=== PATIENT | female | born 1950 | race Caucasian/White ===

== ENCOUNTER 2018-02-17 15:25 | Observation (INO) ==
--- NOTE | 2018-02-17 15:29 | Emergency Department Note ---
ED Disposition Clinical Impression: Chest pain, Atypical chest pain, COPD with acute exacerbation Disposition: Admitted As Inpatient Condition on Discharge: Fair Time of Disposition: 17:37 - Critical Care Critical Care Time: Yes Attestation: On , the high probability of a clinically significant, sudden or life threatening deterioration of the following system(s) required my full and direct attention, intervention and personal management. The time I documented below is in addition to time spent performing reported procedures but includes the following listed in this critical care notation. Total Critical Care Time: 45 Vital system(s) involved:: Circulatory Failure, Respiratory Failure My critical care processes included: Assessment & monitoring of V/S, Initial and Re-exams, Data Review/Interpretation, Coordinating Care, Medication Orders and management, Documentation Medical Decision Making - Medical Records Medical records reviewed: Yes: I reviewed the patient's medical records. - Ryan Inquiry Pt receiving controlled substance: No Ryan was queried for this patient: No Vital Signs: 02/17/18 15:26 02/17/18 15:50 02/17/18 16:24 Temperature 98.9 F Temperature Source Temporal Artery Scan Pulse Rate 112 H Pulse Rate [Right Brachial] 110 H 111 H Respiratory Rate 32 H 22 Blood Pressure Blood Pressure [Right Arm] 134/102 H 155/85 H Blood Pressure Mean [Right Arm] 112 108 Blood Pressure Source Blood Pressure Source [Right Arm] Automatic Cuff Automatic Cuff Blood Pressure Position Blood Pressure Position [Right Arm] Sitting Sitting 02 Sat by Pulse Oximetry 95 99 Oxygen Delivery Method Nasal Cannula Nasal Cannula Oxygen Flow Rate (LPM) 3 2 02/17/18 16:57 02/17/18 17:00 02/17/18 17:30 Temperature Temperature Source Pulse Rate Pulse Rate [Right Brachial] 107 H 104 H 103 H Respiratory Rate 22 20 Blood Pressure Blood Pressure [Right Arm] 166/96 H 172/89 H 168/93 H Blood Pressure Mean [Right Arm] 119 116 118 Blood Pressure Source Blood Pressure Source [Right Arm] Automatic Cuff Automatic Cuff Blood Pressure Position Blood Pressure Position [Right Arm] Sitting Sitting 02 Sat by Pulse Oximetry 100 100 99 Oxygen Delivery Method Nasal Cannula Nasal Cannula Oxygen Flow Rate (LPM) 2 2 02/17/18 18:00 02/17/18 18:30 02/17/18 18:40 Temperature 98.8 F Temperature Source Oral Pulse Rate 99 H Pulse Rate [Right Brachial] 109 H 99 H Respiratory Rate 24 20 20 Blood Pressure 173/85 H Blood Pressure [Right Arm] 181/102 H 173/85 H Blood Pressure Mean [Right Arm] 128 114 Blood Pressure Source Automatic Cuff Blood Pressure Source [Right Arm] Automatic Cuff Automatic Cuff Blood Pressure Position Sitting Blood Pressure Position [Right Arm] Sitting Sitting 02 Sat by Pulse Oximetry 97 98 Oxygen Delivery Method Nasal Cannula Nasal Cannula Nasal Cannula Oxygen Flow Rate (LPM) 2 2 2 - Lab Data Lab results reviewed: Yes: I reviewed the patient's lab results. Lab Results 02/17/18 15:30: WBC 13.4 H, RBC 3.73 L, Hgb 12.1 L, Hct 36.5 L, MCV 97.8, MCH 32.3 H, MCHC 33.0, RDW 13.8, Plt Count 312, MPV 6.7 L, Neut % (Auto) 87.0 H, Lymph % (Auto) 6.7 L, Armstrong % (Auto) 4.5, Eos % (Auto) 1.6, Baso % (Auto) 0.3, Neut # (Auto) 11.6 H, Lymph # (Auto) 0.9, Armstrong # (Auto) 0.6, Eos # (Auto) 0.2, Baso # (Auto) 0.0, Total Counted 100, Neutrophils % (Manual) 89 H, Band Neutrophils % 1.0, Lymphocytes % (Manual) 6 L, Atypical Lymphs % 1.0, Monocytes % (Manual) 3, Platelet Estimate Normal, RBC Morphology Normal 02/17/18 15:30: Sodium 130 L, Potassium 3.9, Chloride 94 L, Carbon Dioxide 25, Anion Gap 14.9, BUN 8, Creatinine 0.57, Estimated Creat Clear 48, Estimated GFR 106, Est GFR ( Amer) 128, Glucose 120 H, Calcium 8.8, Troponin I < 0.02 02/17/18 15:30: Lactate 3.0 H 02/17/18 15:32: Specimen Source Rt radial, O2 % 28, ABG pH 7.41, ABG pCO2 30.5 L , ABG pO2 107.7 H, ABG HCO3 19.0 L, ABG Total CO2 20.0 L, ABG O2 Saturation 98, ABG Base Excess -5.6 L, Romero Test Acceptable Result diagrams: 02/24/18 05:18 02/24/18 05:18 Orders (Tests/Meds): ED MEDICATIONS Generic Name Dose Route Start Last Admin Trade Name Freq PRN Reason Stop Dose Admin Acetaminophen 1,000 mg 02/24/18 09:34 Tylenol 500mg Tablet PO 03/20/18 17:06 Q6HP PRN Mild pain,fever,headache Albuterol/Ipratropium 3 ml 02/24/18 09:34 Duoneb 3ml Neb 03/20/18 22:59 Q4HP PRN Shortness Of Breath Albuterol/Ipratropium 3 ml 02/24/18 13:00 02/24/18 09:49 Duoneb 3ml Neb 03/20/18 12:59 3 ml QID NONA Administration Aspirin 81 mg 02/24/18 13:00 02/24/18 12:31 Aspirin 81mg Chewable Tablet PO 03/21/18 14:14 81 mg 1300 NONA Administration Atorvastatin Calcium 20 mg 02/24/18 13:00 02/24/18 12:31 Lipitor 20mg Tablet PO 03/23/18 12:59 20 mg 1300 NONA Administration Diltiazem HCl 120 mg 02/24/18 21:00 Cardizem 60mg Tablet PO 03/26/18 08:59 BID NONA Hydroxyzine Pamoate 25 mg 02/24/18 09:34 Vistaril 25mg Capsule PO 03/20/18 23:00 Q4HP PRN Anxiety Azithromycin 500 mg/ Sodium 250 mls @ 250 mls/hr 02/24/18 21:00 Chloride IV 03/03/18 20:59 Q24H NONA Protocol Ceftriaxone Sodium 1 gm/ 50 mls @ 100 mls/hr 02/24/18 18:00 Sodium Chloride IV 03/03/18 17:59 Q24H NONA Protocol Lisinopril 10 mg 02/24/18 13:00 02/24/18 12:31 Zestril 10mg Tablet PO 03/21/18 08:59 10 mg 1300 NONA Administration Montelukast Sodium 10 mg 02/24/18 13:00 02/24/18 12:31 Singulair 10mg Tablet PO 03/23/18 12:59 10 mg 1300 NONA Administration Potassium Chloride 10 meq 02/25/18 09:00 Micro-K 10meq Capsule PO 03/24/18 09:14 DAILY NONA Prednisone 30 mg 02/24/18 21:00 Deltasone 20mg Tablet PO 03/25/18 08:59 BID NONA Rivaroxaban 20 mg 02/24/18 17:30 Xarelto 10mg Tablet PO 03/26/18 17:29 QPMWM NONA Simethicone 80 mg 02/24/18 09:34 Mylicon 80mg Chewable Tablet PO 03/20/18 19:13 Q6HP PRN GAS Discontinued Medications Generic Name Dose Route Start Last Admin Trade Name Freq PRN Reason Stop Dose Admin Acetaminophen 1,000 mg 02/18/18 17:07 02/23/18 02:59 Tylenol 500mg Tablet PO 03/20/18 17:06 1,000 mg Q6HP PRN Administration Mild pain,fever,headache Al Hydrox/Mg Hydrox/Simethicone 30 ml 02/17/18 19:20 02/17/18 20:44 Maalox 30ml Udc PO 02/17/18 19:21 30 ml ONCE ONE Administration Albuterol Sulfate 2.5 mg 02/17/18 19:20 02/18/18 08:06 Albuterol 0.083% 2.5mg/3ml [facility] 03/19/18 19:19 2.5 mg DAILYP PRN Administration BREATHING Albuterol/Ipratropium 3 ml 02/17/18 15:33 02/17/18 15:50 Duoneb 3ml [facility] 02/17/18 15:34 3 ml ONCE ONE Administration Albuterol/Ipratropium 3 ml 02/18/18 08:15 02/18/18 08:22 Duoneb 3ml Neb 02/18/18 08:16 Not Given ONCE ONE Albuterol/Ipratropium 3 ml 02/18/18 13:00 02/24/18 06:00 Duoneb 3ml [facility] 03/20/18 12:59 3 ml QID NONA Administration Albuterol/Ipratropium 3 ml 02/18/18 23:00 02/22/18 01:30 Duoneb 3ml [facility] 03/20/18 22:59 3 ml Q4HP PRN Administration Shortness Of Breath Aspirin 324 mg 02/17/18 19:20 02/17/18 20:36 Aspirin 81mg Chewable Tablet PO 02/17/18 19:21 Not Given ONCE ONE Aspirin 81 mg 02/19/18 14:15 02/23/18 13:46 Aspirin 81mg Chewable Tablet PO 03/21/18 14:14 81 mg 1300 NONA Administration Atorvastatin Calcium 20 mg 02/18/18 13:00 02/20/18 12:21 Lipitor 20mg Tablet PO 03/20/18 12:59 20 mg 1300 NONA Administration Atorvastatin Calcium 20 mg 02/21/18 13:00 02/23/18 13:46 Lipitor 20mg Tablet PO 03/23/18 12:59 20 mg 1300 NONA Administration Belladonna Alkaloids 60 ml 02/17/18 15:33 02/17/18 15:36 Gi Cocktail 60ml Udc PO 02/17/18 15:34 60 ml ONCE ONE Administration Clonidine HCl 0.1 mg 02/22/18 09:01 02/22/18 20:24 Clonidine 0.1mg Tablet PO 03/24/18 09:00 0.1 mg Q6HP PRN Administration Blood Pressure - High Diltiazem HCl 30 mg 02/23/18 09:00 02/23/18 09:42 Cardizem 30mg Tablet PO 03/25/18 08:59 30 mg QID NONA Administration Diltiazem HCl 10 mg 02/23/18 11:15 02/23/18 11:28 Cardizem 25mg/5ml Vial IV 02/23/18 11:16 10 mg ONCE ONE Administration Diltiazem HCl 120 mg 02/23/18 21:00 Cardizem 60mg Tablet PO 03/25/18 20:59 BID NONA Diltiazem HCl 120 mg 02/24/18 09:00 02/24/18 08:22 Cardizem 60mg Tablet PO 03/26/18 08:59 120 mg BID NONA Administration Diltiazem HCl 120 mg 02/23/18 17:00 02/23/18 17:02 Cardizem 30mg Tablet PO 02/23/18 17:01 120 mg 1700 ONE Administration Enoxaparin Sodium 40 mg 02/18/18 17:15 02/22/18 08:00 Lovenox 40mg/0.4ml Syringe SQ 03/20/18 17:14 40 mg DAILY NONA Administration Enoxaparin Sodium 50 mg 02/23/18 09:00 02/24/18 08:23 Lovenox 60mg/0.6ml Syringe SQ 03/25/18 08:59 50 mg BID NONA Administration Furosemide 40 mg 02/21/18 13:40 02/21/18 13:51 Lasix 40mg/4ml Vial IV 02/21/18 13:41 40 mg ONCE ONE Administration Hydroxyzine Pamoate 25 mg 02/18/18 23:01 02/24/18 08:46 Vistaril 25mg Capsule PO 03/20/18 23:00 25 mg Q4HP PRN Administration Anxiety Hydroxyzine Pamoate 25 mg 02/19/18 15:45 02/19/18 15:35 Vistaril 25mg Capsule PO 02/19/18 15:46 25 mg ONCE ONE Administration Ceftriaxone Sodium 1 gm/ 50 mls @ 100 mls/hr 02/17/18 18:30 02/17/18 20:33 Sodium Chloride IV 02/17/18 18:59 100 mls/hr ONCE ONE Administration Protocol Azithromycin 500 mg/ Sodium 250 mls @ 250 mls/hr 02/17/18 18:30 02/17/18 21:20 Chloride IV 03/03/18 18:29 250 mls/hr Q24H NONA Administration Protocol Sodium Chloride 1,000 mls @ 125 mls/hr 02/17/18 18:45 02/17/18 20:45 Sod Chlor 0.9% 1000ml Bag IV 03/19/18 18:44 Not Given .Q8H NONA Azithromycin 500 mg/ Sodium 250 mls @ 250 mls/hr 02/18/18 21:00 02/23/18 21:10 Chloride IV 03/03/18 20:59 250 mls/hr Q24H NONA Administration Protocol Ceftriaxone Sodium 1 gm/ 50 mls @ 100 mls/hr 02/18/18 18:00 02/23/18 18:02 Sodium Chloride IV 03/03/18 17:59 100 mls/hr Q24H NONA Administration Protocol Sodium Chloride 1,000 mls @ 75 mls/hr 02/17/18 19:20 02/20/18 03:02 Sod Chlor 0.9% 1000ml Bag IV 03/19/18 19:19 75 mls/hr .[id number] NONA Administration Sodium Chloride 1,000 mls @ 125 mls/hr 02/17/18 19:20 02/17/18 20:39 Sod Chlor 0.9% 1000ml Bag IV 03/19/18 18:44 Not Given .Q8H NONA Diltiazem HCl 100 mg/ Sodium 100 mls @ 5 mls/hr 02/23/18 14:45 02/23/18 15:04 Chloride IV 02/23/18 17:00 5 mls/hr .Q20H NONA Administration Protocol Levalbuterol HCl 1.25 mg 02/19/18 15:15 02/19/18 15:15 Xopenex 1.25mg/3ml Neb IH 02/19/18 15:16 1.25 mg ONCE ONE Administration Lisinopril 10 mg 02/18/18 13:00 02/18/18 13:29 Zestril 10mg Tablet PO 03/20/18 12:59 10 mg 1300 NONA Administration Lisinopril 10 mg 02/19/18 09:00 02/23/18 13:46 Zestril 10mg Tablet PO 03/21/18 08:59 10 mg 1300 NONA Administration Methylprednisolone Sodium Succinate 125 mg 02/17/18 16:18 02/17/18 16:26 Solu-Medrol 125mg/2ml Vial IV 02/17/18 16:19 125 mg ONCE ONE Administration Methylprednisolone Sodium Succinate 125 mg 02/18/18 08:15 02/18/18 08:16 Solu-Medrol 125mg/2ml Vial IV 02/18/18 08:16 125 mg ONCE ONE Administration Methylprednisolone Sodium Succinate 125 mg 02/18/18 07:55 02/18/18 09:10 Solu-Medrol 125mg/2ml Vial IV 02/18/18 07:56 Not Given ONCE ONE Methylprednisolone Sodium Succinate 125 mg 02/18/18 17:15 02/21/18 08:28 Solu-Medrol 125mg/2ml Vial IV 03/20/18 17:14 125 mg Q8H NONA Administration Methylprednisolone Sodium Succinate 80 mg 02/21/18 13:40 02/22/18 05:22 Solu-Medrol 125mg/2ml Vial IV 03/23/18 13:39 80 mg Q8H NONA Administration Methylprednisolone Sodium Succinate 60 mg 02/22/18 13:00 02/23/18 04:09 Solu-Medrol 125mg/2ml Vial IV 03/24/18 12:59 60 mg Q8H NONA Administration Montelukast Sodium 10 mg 02/18/18 13:00 02/20/18 12:21 Singulair 10mg Tablet PO 03/20/18 12:59 10 mg 1300 NONA Administration Montelukast Sodium 10 mg 02/21/18 13:00 02/23/18 13:46 Singulair 10mg Tablet PO 03/23/18 12:59 10 mg 1300 NONA Administration Nitroglycerin 0.4 mg 02/17/18 19:20 Nitrostat 0.4mg Sl Tablet SL 02/18/18 19:21 Q5MINP PRN Chest Pain Pt's Own Med 1 tab 02/18/18 13:00 02/19/18 15:21 Aspirin 81mg PO 03/20/18 12:59 Not Given Chewable Tab* 1300 NONA Potassium Chloride 10 meq 02/22/18 09:15 02/24/18 08:23 Micro-K 10meq Capsule PO 03/24/18 09:14 10 meq DAILY NONA Administration Prednisone 30 mg 02/23/18 09:00 02/24/18 08:24 Deltasone 20mg Tablet PO 03/25/18 08:59 30 mg BID NONA Administration Rivaroxaban 20 mg 02/24/18 17:30 Xarelto 10mg Tablet PO 03/26/18 17:29 QPMWM NONA Simethicone 80 mg 02/18/18 19:14 02/24/18 08:46 Mylicon 80mg Chewable Tablet PO 03/20/18 19:13 80 mg Q6HP PRN Administration GAS ORDERS Category Date Time Status Blood Culture Stat Micro 02/17/18 15:30 Ordered ECG Request by /Yobani Stat Y 02/17/18 19:20 Stop Req - Radiology Data #1 Image(s): Chest Image Reviewed: Yes I reviewed the patient's radiology results Preliminary Findings: Normal/NAD - ECG Data Tracing #1 I reviewed this ECG and interpreted as documented below: Sinus tachycardia;LAE Normal Sinus Rhythm: Yes Chest Pain HPI - General Chief Complaint: Chest Pain Stated Complaint: Shortness of Breath Time Seen by Provider: 02/17/18 15:27 Source of Information: Patient Limitations: No Limitations - History of Present Illness MD complaint: chest pain Onset (ago): hour(s) (4) Duration: constant Activity at onset: during rest Pain location: substernal Severity: mild Severity scale (1-10): 4 Quality: sharp, other (burning) Pain radiation: none Relieving factors: nitroglycerin Exacerbating factors: nothing Associated symptoms: dyspnea Risk Factors for CAD: Hypertension, Hypercholesterolemia Treatments prior to or on arrival for Cardiac Chest Pain: aspirin, nitroglycerin, other (duoneb) - Related Data Home Medications Medication Instructions Recorded Confirmed Albuterol Sulfate [Proair 2 puffs IH Q4-6H PRN 02/17/18 02/18/18 Respiclick] Aspirin [Aspirin 81mg chewable 81 mg PO 1400 02/17/18 02/18/18 tab] Atorvastatin Calcium [Atorvastatin 20 mg PO 1400 02/17/18 02/18/18 20mg Tab] Montelukast Sodium [Singulair 10mg 10 mg PO HS 02/17/18 02/18/18 tablet] Ipratropium/Albuterol Sulfate 3 ml INHALATION QID 02/18/18 02/18/18 [Iprat-Albut 0.5-3(2.5) mg/3 ml] Lisinopril/Hydrochlorothiazide 1 each PO 1400 02/18/18 02/18/18 [Lisinopril-Hctz 10-12.5 mg Tab] Allergies Allergy/AdvReac Type Severity Reaction Status Date / Time No Known Allergies Allergy Verified 02/17/18 15:29 [facility] History I have reviewed the patient's past medical history: Yes ROS Obtained: Yes All systems reviewed & no additional complaints - Constitutional Constitutional: Reports system reviewed and no additional complaints, except as docu, Denies chills, Denies fever(s), Reports malaise - Cardiovascular Cardiovascular: Reports system reviewed and no additional complaints, except as docu, Reports chest pain, Denies diaphoresis, Reports dyspnea, Denies edema, Reports irregular heart rhythm, Denies leg edema, Reports shortness of breath when lying down, Denies shortness of breath causing sudden awakening, Denies pedal edema - Respiratory Respiratory: Yes system reviewed and no additional complaints, except as docu, No cough, Yes dyspnea - Gastrointestinal Gastrointestingal: Reports: system reviewed and no additional complaints, except as docu, abdominal pain (epigastrium). Denies: diarrhea, dyspepsia, dysphagia, nausea, vomiting - Integumentary/Breasts Skin/Breast: Reports system reviewed and no additional complaints, except as docu - Neurologic Neurologic: Reports system reviewed and no additional complaints, except as docu, Denies dizziness, Denies headache(s) - Endocrine Endocrine: Reports system reviewed and no additional complaints, except as docu Physical Exam - General General appearance: alert, in distress (moderate,respiratorm) - Head Head exam: atraumatic, normocephalic, normal inspection - Eye Eye exam: Present: normal appearance, PERRL, EOMI - ENT ENT exam: Present: normal exam, normal oropharynx, mucous membranes moist, normal external ear exam - Neck Neck exam: Present: normal inspection, full ROM, trachea midline. Absent: meningismus, lymphadenopathy - Chest Chest inspection: Present: normal inspection, symmetric chest wall rise. Absent: tenderness - Respiratory Respiratory exam: Present: normal lung sounds bilaterally. Absent: respiratory distress - Cardiovascular Cardiovascular exam: Present: normal rhythm, tachycardia. Absent: JVD - Abdominal Exam Abdominal exam: Present: soft, normal bowel sounds. Absent: distention, tenderness, guarding - Extremities Exam Extremities exam: Present: normal inspection, full ROM, normal capillary refill. Absent: calf tenderness - Back Exam Back exam: Present: normal inspection. Absent: tenderness - Neurological Exam Neurological exam: Present: alert, oriented X3 - Psychiatric Psychiatric exam: Present: normal affect, normal mood - Skin Skin exam: Present: warm, dry, intact, normal color - Lymphatic Lymphatic Findings: no adenopathy
[2018-02-17 15:38] LABS: ABG Base Excess -5.6 mmol/L (-2.4-2.3); ABG Oxygen Saturation 98 % (90-100); ABG PCO2 30.5 mmhg (35.0-45.0); ABG PH 7.41 mmol/L (7.35-7.45); ABG PO2 107.7 mmhg (80-100)
[2018-02-17 15:40] LABS: Basophils % 0.3 % (0.1-2.0); Eosinophils # 0.2 K/mm3 (0.0-0.4); Eosinophils % 1.6 % (0.1-12.0); Hematocrit 36.5 % (37.0-47.0); Hemoglobin 12.1 g/dL (12.2-16.2); Lymphocytes # 0.9 K/mm3 (0.7-4.5); Lymphocytes % 6.7 % (10-50); Mean Corpuscular Hemoglobin 32.3 pg (27.0-31.2); Mean Corpuscular Volume 97.8 fl (81-99); Mean Platelet Volume 6.7 fl (7.4-10.4); Monocytes # 0.6 K/mm3 (0.1-1.0); Monocytes % 4.5 % (1.7-9.3); Neutrophils # 11.6 K/mm3 (1.8-7.8); Platelet Count 312 K/mm3 (142-424); Red Blood Count 3.73 M/mm3 (4.20-5.40); Red Cell Distribution Width 13.8 % (11.5-17.5); White Blood Count 13.4 K/mm3 (4.8-10.8)
[2018-02-17 15:41] LABS: Allen's Test Acceptable; Oxygen 28 %
[2018-02-17 15:55] LABS: Lymphocytes % 6 % (10-50); Monocytes % 3 % (2-9); Neutrophils % 89 % (42-76); RBC Morphology Normal; Total Cells Counted 100
[2018-02-17 16:07] LABS: Anion Gap 14.9 mEq/L (5-15); Blood Urea Nitrogen 8 mg/dL (7-18); Calcium 8.8 mg/dL (8.5-10.1); Carbon Dioxide 25 mmol/L (21.0-32.0); Chloride 94 mmol/L (98-107); Glucose 120 mg/dL (74-106); Potassium 3.9 mmoL/L (3.5-5.1); Sodium 130 mmol/L (136-145)
[2018-02-17 20:02] LABS: Basophils % 0.1 % (0.1-2.0); Eosinophils # 0.1 K/mm3 (0.0-0.4); Eosinophils % 0.4 % (0.1-12.0); Hematocrit 35.7 % (37.0-47.0); Hemoglobin 11.7 g/dL (12.2-16.2); Lymphocytes # 0.2 K/mm3 (0.7-4.5); Lymphocytes % 1.5 % (10-50); Mean Corpuscular HGB Conc 32.8 g/dL (31.8-35.4); Mean Corpuscular Hemoglobin 31.8 pg (27.0-31.2); Mean Corpuscular Volume 96.7 fl (81-99); Mean Platelet Volume 6.9 fl (7.4-10.4); Monocytes # 0.2 K/mm3 (0.1-1.0); Monocytes % 1.5 % (1.7-9.3); Neutrophils # 13.2 K/mm3 (1.8-7.8); Neutrophils % 96.6 % (37.0-80.0); Platelet Count 262 K/mm3 (142-424); Red Blood Count 3.69 M/mm3 (4.20-5.40); Red Cell Distribution Width 13.7 % (11.5-17.5); White Blood Count 13.7 K/mm3 (4.8-10.8)
[2018-02-17 20:30] LABS: Albumin Level 3.6 gm/dL (3.4-5.0); Anion Gap 15.5 mEq/L (5-15); Bilirubin,Total 0.6 mg/dL (0.2-1.0); Calcium 8.7 mg/dL (8.5-10.1); Globulin 3.6 gm/dl (1.3-3.2); Potassium 4.5 mmoL/L (3.5-5.1); Total Protein,Serum 7.2 gm/dL (6.4-8.2)
--- NOTE | 2018-02-18 07:38 | Pharmacy Consult Notes ---
[facility] VTE Monitoring - Patient Demographics Admission date: 02/17/18 Report Date: 02/18/18 Time: 07:38 Allergies/Adverse Reactions: Patient Allergies No Known Allergies Allergy (Verified 02/17/18 15:29) Height: 1.55 m Weight: 47.826 kg Patient Problems: Current Active Problems Chest pain (Acute) Atypical chest pain (Acute) COPD with acute exacerbation (Acute) - VTE Risk Labs: VTE Related Lab Results Hgb 11.7 g/dL (12.2-16.2) L 02/17/18 19:50 Hct 35.7 % (37.0-47.0) L 02/17/18 19:50 Plt Count 262 K/mm3 (142-424) 02/17/18 19:50 BUN 8 mg/dL (7-18) 02/17/18 19:50 Creatinine 0.60 mg/dL (0.55-1.02) 02/17/18 19:50 Estimated Creat Clear 48 mL/min (50-200) 02/17/18 19:50 Was VTE Risk Assessment Performed: Yes VTE Risk Level: Very Low Risk - Prophylaxis VTE Prophylaxis Ordered?: Yes Types of VTE Prophylaxis: TEDS Knee High Location of Applied Device: Bilateral Lower Extremeties - VTE Diagnosis Confirmed Treatment or plan recommended: Continue Current Treatment
--- NOTE | 2018-02-18 09:24 | History & Physical Report ---
*Admission Date: 02/17/18 <YanesFelisaLucy - 02/18/18 09:33> *Chief complaint: Shortness of breath <YanesFelisaLucy 02/18/18 09:33> *History of present illness: Ms. Quintero is a 67-year-old female with a history of COPD tension who began to get short of breath yesterday a.m. when entailed running errands. She states she went home a DuoNeb treatment and did not improve and thus called 911. Ambulance brought her to [facility] emergency room for evaluation. She denies having any cough although she has somewhat of a cough this morning. She describes some midsternal burning. She denies palpitations or leg edema. She denies having a fever or any other upper respiratory signs or symptoms. She is usually short of breath in the a.m., takes a DuoNeb treatment, and then feels fine. She does not use home oxygen. Patient is physician is Dr. Wesley in [facility]. At the time of this exam patient is short of breath after walking to the bathroom and has not recovered. She will receive a stat and given a stat dose of Solu-Medrol. She has not received a DuoNeb since last p.m. In the emergency room she received DuoNeb treatment, IV Solu-Medrol and started on IV antibiotics and admitted. <Lucy Yanes 02/18/18 09:33> [facility] History Medical History: Reports:: Chronic Obstructive Pulmonary Disease (COPD), Gastroesophageal Reflux Disease(GERD), Hypertension, Lung Disease Denies:: Atherosclerotic Heart Disease, Cancer, Cardiomyopathy, Congestive Heart Failure, Coronary Artery Disease, Depression, Diabetes Mellitus Type 2, Home Oxygen, Renal Insufficiency, Seizures <Lucy Yanes 02/18/18 09:33> Other Medical History: Denies: Arthritis, Hypothyroidism <Lucy Yanes 02/18/18 09:33> Laterality Cases: Bilateral: Cataract <Lucy Yanes 02/18/18 09:33> Comment: Hysterectomy <Lucy Yanes 02/18/18 09:33> - Psychiatric History Expresses thoughts of harming self/others: None <Lucy Yanes 02/18/18 09:33> Suicide Plan Description: No Plan <Lucy Yanes 02/18/18 09:33> *Family Hx:: Cancer <Lucy Yanes 02/18/18 09:33> Comment: 3 siblings have had lung cancer <Lucy Yanes 02/18/18 09:33> Review of Systems - Constitutional Denies chills, Denies fever(s), Denies headache(s) <Lucy Yanes 02/18/18 09:33> - ENT Denies dizziness, Denies ear pain, Denies sore throat <Lucy Yanes 02/18/18 09:33> - *Cardiovascular Reports chest pain (Midsternal burning) <Lucy Yanes 02/18/18 09:33> - *Respiratory Reports cough, Reports shortness of breath <Lucy Yanes 02/18/18 09:33> - *Gastrointestinal Reports constipation, Reports heartburn, Denies abdominal pain, Denies change in bowel habits, Denies vomiting blood, Denies black, tarry stools, Denies nausea, Denies vomiting <Lucy Yanes 02/18/18 09:33> - *Musculoskeletal Denies abnormal walking, Denies joint pain <Lucy Yanes 02/18/18 09:33> - *Neurologic Denies dizziness, Denies headache(s) <Lucy Yanes 02/18/18 09:33> Meds Home Medications Medication Instructions Recorded Confirmed Type Albuterol Sulfate [Proair 2 puffs IH Q4-6H PRN 02/17/18 02/18/18 History Respiclick] Aspirin [Aspirin 81mg chewable 81 mg PO 1400 02/17/18 02/18/18 History tab] Atorvastatin Calcium [Atorvastatin 20 mg PO 1400 02/17/18 02/18/18 History 20mg Tab] Montelukast Sodium [Singulair 10mg 10 mg PO HS 02/17/18 02/18/18 History tablet] Ipratropium/Albuterol Sulfate 3 ml INHALATION QID 02/18/18 02/18/18 History [Iprat-Albut 0.5-3(2.5) mg/3 ml] Lisinopril/Hydrochlorothiazide 1 each PO 1400 02/18/18 02/18/18 History [Lisinopril-Hctz 10-12.5 mg Tab] <Ryland Henley - 02/18/18 12:46> Allergies Allergy/AdvReac Type Severity Reaction Status Date / Time No Known Allergies Allergy Verified 02/17/18 15:29 <Ryland Henley - 02/18/18 12:46> Exam Vital signs and Labs for Last 24 Hours: Temp Pulse Resp BP Pulse Ox 98.7 F 92 H 19 137/65 93 L 02/18/18 11:25 02/18/18 11:25 02/18/18 11:25 02/18/18 11:25 02/18/18 11:25 Laboratory Results - last 24 hr 02/17/18 15:30: WBC 13.4 H, RBC 3.73 L, Hgb 12.1 L, Hct 36.5 L, MCV 97.8, MCH 32.3 H, MCHC 33.0, RDW 13.8, Plt Count 312, MPV 6.7 L, Neut % (Auto) 87.0 H, Lymph % (Auto) 6.7 L, [place] % (Auto) 4.5, Eos % (Auto) 1.6, Baso % (Auto) 0.3, Neut # (Auto) 11.6 H, Lymph # (Auto) 0.9, [place] # (Auto) 0.6, Eos # (Auto) 0.2, Baso # (Auto) 0.0, Total Counted 100, Neutrophils % (Manual) 89 H, Band Neutrophils % 1.0, Lymphocytes % (Manual) 6 L, Atypical Lymphs % 1.0, Monocytes % (Manual) 3, Platelet Estimate Normal, RBC Morphology Normal 02/17/18 15:30: Sodium 130 L, Potassium 3.9, Chloride 94 L, Carbon Dioxide 25, Anion Gap 14.9, BUN 8, Creatinine 0.57, Estimated Creat Clear 48, Estimated GFR 106, Est GFR ( Amer) 128, Glucose 120 H, Calcium 8.8, Troponin I < 0.02 02/17/18 15:30: Lactate 3.0 H 02/17/18 15:32: Specimen Source Rt radial, O2 % 28, ABG pH 7.41, ABG pCO2 30.5 L , ABG pO2 107.7 H, ABG HCO3 19.0 L, ABG Total CO2 20.0 L, ABG O2 Saturation 98, ABG Base Excess -5.6 L, Romero Test Acceptable 02/17/18 19:50: Troponin I 0.02 02/17/18 19:50: Sodium 129 L, Potassium 4.5, Chloride 93 L, Carbon Dioxide 25, Anion Gap 15.5 H, BUN 8, Creatinine 0.60, Estimated Creat Clear 48, Estimated GFR 100, Est GFR ( Amer) 121, Glucose 150 H D, Calcium 8.7, Total Bilirubin 0.6, AST 19, ALT 24, Alkaline Phosphatase 72, CK-MB (CK-2) 3.1, Total Protein 7.2, Albumin 3.6, Globulin 3.6 H, Albumin/Globulin Ratio 1.0 L 02/17/18 19:50: WBC 13.7 H, RBC 3.69 L, Hgb 11.7 L, Hct 35.7 L, MCV 96.7, MCH 31.8 H, MCHC 32.8, RDW 13.7, Plt Count 262, MPV 6.9 L, Neut % (Auto) 96.6 H, Lymph % (Auto) 1.5 L, [place] % (Auto) 1.5 L, Eos % (Auto) 0.4, Baso % (Auto) 0.1, Neut # (Auto) 13.2 H, Lymph # (Auto) 0.2 L, [place] # (Auto) 0.2, Eos # (Auto) 0.1, Baso # (Auto) 0.0 02/17/18 19:50: Lactate 1.2 02/17/18 22:23: Troponin I 0.02 02/18/18 01:20: Troponin I < 0.02 <Ryland Henley - 02/18/18 12:46> Temp Pulse Resp BP Pulse Ox 98.8 F 88 21 137/78 98 02/18/18 07:18 02/18/18 08:07 02/18/18 07:18 02/18/18 07:18 02/18/18 08:07 Laboratory Results - last 24 hr 02/17/18 15:30: WBC 13.4 H, RBC 3.73 L, Hgb 12.1 L, Hct 36.5 L, MCV 97.8, MCH 32.3 H, MCHC 33.0, RDW 13.8, Plt Count 312, MPV 6.7 L, Neut % (Auto) 87.0 H, Lymph % (Auto) 6.7 L, [place] % (Auto) 4.5, Eos % (Auto) 1.6, Baso % (Auto) 0.3, Neut # (Auto) 11.6 H, Lymph # (Auto) 0.9, [place] # (Auto) 0.6, Eos # (Auto) 0.2, Baso # (Auto) 0.0, Total Counted 100, Neutrophils % (Manual) 89 H, Band Neutrophils % 1.0, Lymphocytes % (Manual) 6 L, Atypical Lymphs % 1.0, Monocytes % (Manual) 3, Platelet Estimate Normal, RBC Morphology Normal 02/17/18 15:30: Sodium 130 L, Potassium 3.9, Chloride 94 L, Carbon Dioxide 25, Anion Gap 14.9, BUN 8, Creatinine 0.57, Estimated Creat Clear 48, Estimated GFR 106, Est GFR ( Amer) 128, Glucose 120 H, Calcium 8.8, Troponin I < 0.02 02/17/18 15:30: Lactate 3.0 H 02/17/18 15:32: Specimen Source Rt radial, O2 % 28, ABG pH 7.41, ABG pCO2 30.5 L , ABG pO2 107.7 H, ABG HCO3 19.0 L, ABG Total CO2 20.0 L, ABG O2 Saturation 98, ABG Base Excess -5.6 L, Romero Test Acceptable 02/17/18 19:50: Troponin I 0.02 02/17/18 19:50: Sodium 129 L, Potassium 4.5, Chloride 93 L, Carbon Dioxide 25, Anion Gap 15.5 H, BUN 8, Creatinine 0.60, Estimated Creat Clear 48, Estimated GFR 100, Est GFR ( Amer) 121, Glucose 150 H D, Calcium 8.7, Total Bilirubin 0.6, AST 19, ALT 24, Alkaline Phosphatase 72, CK-MB (CK-2) 3.1, Total Protein 7.2, Albumin 3.6, Globulin 3.6 H, Albumin/Globulin Ratio 1.0 L 02/17/18 19:50: WBC 13.7 H, RBC 3.69 L, Hgb 11.7 L, Hct 35.7 L, MCV 96.7, MCH 31.8 H, MCHC 32.8, RDW 13.7, Plt Count 262, MPV 6.9 L, Neut % (Auto) 96.6 H, Lymph % (Auto) 1.5 L, [place] % (Auto) 1.5 L, Eos % (Auto) 0.4, Baso % (Auto) 0.1, Neut # (Auto) 13.2 H, Lymph # (Auto) 0.2 L, [place] # (Auto) 0.2, Eos # (Auto) 0.1, Baso # (Auto) 0.0 02/17/18 19:50: Lactate 1.2 02/17/18 22:23: Troponin I 0.02 02/18/18 01:20: Troponin I < 0.02 <Lucy Yanes - 02/18/18 09:33> I & O for Last 24 hours: Intake & Output 02/16/18 02/17/18 02/18/18 02/19/18 11:59 11:59 11:59 11:59 Intake Total 1542 / 1542 Balance 1542 / 1542 Weight 105 lb 7 oz <[place],Ryland - 02/18/18 12:46> Intake & Output 02/15/18 02/16/18 02/17/18 02/18/18 11:59 11:59 11:59 11:59 Intake Total 1302 / 1302 Balance 1302 / 1302 Weight 105 lb 7 oz <Lucy Yanes - 02/18/18 09:33> Radiology Reports for the Last 24 Hours: 02/17/2018 chest x-ray IMPRESSION: 1. Nodularity in the right lung base nonspecific. Follow-up PA and lateral chest x-ray may be of further value 2. Old granulomatous disease. 3. Carotid artery calcifications <Lucy Yanes 02/18/18 09:33> - Constitutional Comments: Patient is in distress. He has difficulty talking and breathing at the same time. She is using accessory muscles to breathe <Lucy Yanes 02/18/18 09:33> - *Routine HEENT Exam Head: Present: normocephalic, atraumatic <Lucy Yanes 02/18/18 09:33> Eye: Present: PERRL <Lucy Yanes - 02/18/18 09:33> ENT: Present: mucous membranes moist, oropharynx clear <Lucy Yanes 02/18/18 09:33> - *Routine Neck Exam Present: supple, full ROM. Absent: carotid bruit, lymphadenopathy, thyromegaly <[facility] 02/18/18 09:33> - *Routine Respiratory Exam Comments: Poor breath sounds posteriorly with wheezing anteriorly and posteriorly [facility] 02/18/18 09:33> - *Routine Cardiovascular Exam Present: RRR <[facility] 02/18/18 09:33> - *Routine Abdominal Exam Present: soft, normoactive bowel sounds. Absent: tenderness, distended <[facility] 02/18/18 09:33> - *Routine Extremities Exam Absent: edema, calf tenderness <[facility] 02/18/18 09:33> - *Routine Neurological Exam Present: alert, oriented X3 <Yanes,[facility] 02/18/18 09:33> Assessment and Plan (1) COPD with acute exacerbation Current visit: Yes Status: Acute Category: Medical Code(s): J44.1 - Chronic obstructive pulmonary disease with (acute) exacerbation (2) Shortness of breath Current visit: Yes Status: Acute Category: Medical Code(s): R06.02 - Shortness of breath (3) Chest pain Current visit: Yes Status: Acute Qualifiers: Chest pain type: unspecified Qualified Code(s): R07.9 - Chest pain, unspecified Category: Medical Code(s): R07.9 - Chest pain, unspecified (4) Hypertension Current visit: Yes Status: Chronic Category: Medical Code(s): I10 - Essential (primary) hypertension (5) Tobacco use disorder Current visit: Yes Status: Chronic Category: Medical Code(s): F17.200 - Nicotine dependence, unspecified, uncomplicated (6) Hyperlipidemia Current visit: Yes Status: Chronic Category: Medical Code(s): E78.5 - Hyperlipidemia, unspecified (7) GERD (gastroesophageal reflux disease) Current visit: Yes Status: Chronic Category: Medical Code(s): K21.9 - Gastro-esophageal reflux disease without esophagitis <Ryland Henley 02/18/18 12:46> (1) COPD with acute exacerbation Current visit: Yes Status: Acute Category: Medical Code(s): J44.1 - Chronic obstructive pulmonary disease with (acute) exacerbation (2) Shortness of breath Current visit: Yes Status: Acute Category: Medical Code(s): R06.02 - Shortness of breath (3) Chest pain Current visit: Yes Status: Acute Qualifiers: Chest pain type: unspecified Qualified Code(s): R07.9 - Chest pain, unspecified Category: Medical Code(s): R07.9 - Chest pain, unspecified (4) Hypertension Current visit: Yes Status: Chronic Category: Medical Code(s): I10 - Essential (primary) hypertension (5) Tobacco use disorder Current visit: Yes Status: Chronic Category: Medical Code(s): F17.200 - Nicotine dependence, unspecified, uncomplicated (6) Hyperlipidemia Current visit: Yes Status: Chronic Category: Medical Code(s): E78.5 - Hyperlipidemia, unspecified (7) GERD (gastroesophageal reflux disease) Current visit: Yes Status: Chronic Category: Medical Code(s): K21.9 - Gastro-esophageal reflux disease without esophagitis <Lucy Yanes - 02/18/18 09:19> - Assessment and plan all Dx Assessment and Plan for all problems:: Saw patient, agree with above note. <Ryland Henley - 02/18/18 12:46> We will schedule DuoNeb treatments and add as needed as well. We will continue with IV antibiotics. Home meds have been ordered. <Lucy Yanes - 02/18/18 09:33>
[2018-02-18 22:12] LABS: ABG Base Excess -5.4 mmol/L (-2.4-2.3); ABG HCO3 19.7 mmhg (22.0-26.0); ABG Oxygen Saturation 97 % (90-100); ABG PCO2 33.8 mmhg (35.0-45.0); ABG PH 7.38 mmol/L (7.35-7.45); ABG PO2 91.9 mmhg (80-100); ABG TCO2 20.7 mmhg (23-27)
[2018-02-18 22:14] LABS: Allen's Test Y; Oxygen 4 %
[2018-02-19 06:54] LABS: Anion Gap 14.6 mEq/L (5-15); Calcium 8.3 mg/dL (8.5-10.1); Hematocrit 35.2 % (37.0-47.0); Hemoglobin 11.1 g/dL (12.2-16.2); Lymphocytes # 0.3 K/mm3 (0.7-4.5); Lymphocytes % 2.5 % (10-50); Mean Corpuscular HGB Conc 31.5 g/dL (31.8-35.4); Mean Corpuscular Hemoglobin 31.5 pg (27.0-31.2); Monocytes # 0.2 K/mm3 (0.1-1.0); Monocytes % 2.4 % (1.7-9.3); Neutrophils # 9.8 K/mm3 (1.8-7.8); Neutrophils % 95.1 % (37.0-80.0); Platelet Count 272 K/mm3 (142-424); Potassium 3.6 mmoL/L (3.5-5.1); Red Blood Count 3.52 M/mm3 (4.20-5.40); Red Cell Distribution Width 13.9 % (11.5-17.5); White Blood Count 10.3 K/mm3 (4.8-10.8)
--- NOTE | 2018-02-19 08:08 | Progress Note ---
<Maci Miner - Last Filed: 02/19/18 08:06> Internal Medicine - PN: Subj *Date: 02/19/18 *Time: 08:06 Interval history: Patient states she is feeling a little bit better today. She is still short of breath with any movement. She is still coughing up sputum. She denies any chest pain. She states she slept approximately 3 hours last night and tried to eat her breakfast this morning. Exam Vital signs and Labs for Last 24 Hours: Temp Pulse Resp BP Pulse Ox 98.4 F 94 H 22 171/83 H 99 02/19/18 03:47 02/19/18 05:51 02/19/18 03:47 02/19/18 03:47 02/19/18 05:51 Laboratory Results - last 24 hr 02/18/18 21:56: Specimen Source R/r, O2 % 4, ABG pH 7.38, ABG pCO2 33.8 L, ABG pO2 91.9, ABG HCO3 19.7 L, ABG Total CO2 20.7 L, ABG O2 Saturation 97, ABG Base Excess -5.4 L, Romero Test Y 02/19/18 06:25: WBC 10.3, RBC 3.52 L, Hgb 11.1 L, Hct 35.2 L, MCV 100.0 H, MCH 31.5 H, MCHC 31.5 L, RDW 13.9, Plt Count 272, MPV 7.0 L, Neut % (Auto) 95.1 H, Lymph % (Auto) 2.5 L, [place] % (Auto) 2.4, Eos % (Auto) 0.0 L, Baso % (Auto) 0.0 L , Neut # (Auto) 9.8 H, Lymph # (Auto) 0.3 L, [place] # (Auto) 0.2, Eos # (Auto) 0.0, Baso # (Auto) 0.0 02/19/18 06:25: Sodium 135 L, Potassium 3.6, Chloride 98, Carbon Dioxide 26, Anion Gap 14.6, BUN 13 D, Creatinine 0.68, Estimated Creat Clear 42, Estimated GFR 87, Est GFR ( Amer) 105, Glucose 172 H, Calcium 8.3 L I & O for Last 24 hours: Intake & Output 02/16/18 02/17/18 02/18/18 11/21/18 11:59 11:59 11:59 11:59 Intake Total 1542 / 1542 2144 / 2144 Output Total 850 / 850 Balance 1542 / 1542 1294 / 1294 Weight 105 lb 7 oz Radiology Reports for the Last 24 Hours: CXR - Mild left basilar atelectasis. Previously noted nodular opacity in the right lung base no longer period and was likely due to summation artifact - Constitutional no acute distress - *Routine Respiratory Exam Present: wheezes (bilaterally). Absent: rales - *Routine Cardiovascular Exam Present: RRR - *Routine Abdominal Exam Present: soft, normoactive bowel sounds. Absent: tenderness - *Routine Extremities Exam Absent: cyanosis, clubbing, edema Assessment and Plan (1) COPD with acute exacerbation Current visit: Yes Status: Acute Category: Medical Code(s): J44.1 - Chronic obstructive pulmonary disease with (acute) exacerbation (2) Shortness of breath Current visit: Yes Status: Acute Category: Medical Code(s): R06.02 - Shortness of breath (3) Chest pain Current visit: Yes Status: Acute Qualifiers: Chest pain type: unspecified Qualified Code(s): R07.9 - Chest pain, unspecified Category: Medical Code(s): R07.9 - Chest pain, unspecified (4) Hypertension Current visit: Yes Status: Chronic Category: Medical Code(s): I10 - Essential (primary) hypertension (5) Tobacco use disorder Current visit: Yes Status: Chronic Category: Medical Code(s): F17.200 - Nicotine dependence, unspecified, uncomplicated (6) Hyperlipidemia Current visit: Yes Status: Chronic Category: Medical Code(s): E78.5 - Hyperlipidemia, unspecified (7) GERD (gastroesophageal reflux disease) Current visit: Yes Status: Chronic Category: Medical Code(s): K21.9 - Gastro-esophageal reflux disease without esophagitis - Assessment and plan all Dx Assessment and Plan for all problems:: White blood cell count has normalized and electrolytes have improved. Continue current treatment. <Ryland Henley - Last Filed: 02/19/18 08:33> Exam Vital signs and Labs for Last 24 Hours: Temp Pulse Resp BP Pulse Ox 98.5 F 98 H 22 144/52 H 100 02/19/18 08:00 02/19/18 08:00 02/19/18 08:00 02/19/18 08:00 02/19/18 08:00 Laboratory Results - last 24 hr 02/18/18 21:56: Specimen Source R/r, O2 % 4, ABG pH 7.38, ABG pCO2 33.8 L, ABG pO2 91.9, ABG HCO3 19.7 L, ABG Total CO2 20.7 L, ABG O2 Saturation 97, ABG Base Excess -5.4 L, Romero Test Y 02/19/18 06:25: WBC 10.3, RBC 3.52 L, Hgb 11.1 L, Hct 35.2 L, MCV 100.0 H, MCH 31.5 H, MCHC 31.5 L, RDW 13.9, Plt Count 272, MPV 7.0 L, Neut % (Auto) 95.1 H, Lymph % (Auto) 2.5 L, [place] % (Auto) 2.4, Eos % (Auto) 0.0 L, Baso % (Auto) 0.0 L , Neut # (Auto) 9.8 H, Lymph # (Auto) 0.3 L, [place] # (Auto) 0.2, Eos # (Auto) 0.0 , Baso # (Auto) 0.0, Total Counted 100, Neutrophils % (Manual) 96 H, Lymphocytes % (Manual) 2 L, Monocytes % (Manual) 2, Platelet Estimate Normal, RBC Morphology Normal 02/19/18 06:25: Sodium 135 L, Potassium 3.6, Chloride 98, Carbon Dioxide 26, Anion Gap 14.6, BUN 13 D, Creatinine 0.68, Estimated Creat Clear 42, Estimated GFR 87, Est GFR ( Amer) 105, Glucose 172 H, Calcium 8.3 L I & O for Last 24 hours: Intake & Output 02/16/18 02/17/18 02/18/18 02/19/18 11:59 11:59 11:59 11:59 Intake Total 1542 / 1542 2144 / 2144 Output Total 850 / 850 Balance 1542 / 1542 1294 / 1294 Weight 105 lb 7 oz Assessment and Plan (1) COPD with acute exacerbation Current visit: Yes Status: Acute Category: Medical Code(s): J44.1 - Chronic obstructive pulmonary disease with (acute) exacerbation (2) Shortness of breath Current visit: Yes Status: Acute Category: Medical Code(s): R06.02 - Shortness of breath (3) Chest pain Current visit: Yes Status: Acute Qualifiers: Chest pain type: unspecified Qualified Code(s): R07.9 - Chest pain, unspecified Category: Medical Code(s): R07.9 - Chest pain, unspecified (4) Hypertension Current visit: Yes Status: Chronic Category: Medical Code(s): I10 - Essential (primary) hypertension (5) Tobacco use disorder Current visit: Yes Status: Chronic Category: Medical Code(s): F17.200 - Nicotine dependence, unspecified, uncomplicated (6) Hyperlipidemia Current visit: Yes Status: Chronic Category: Medical Code(s): E78.5 - Hyperlipidemia, unspecified (7) GERD (gastroesophageal reflux disease) Current visit: Yes Status: Chronic Category: Medical Code(s): K21.9 - Gastro-esophageal reflux disease without esophagitis - Assessment and plan all Dx Assessment and Plan for all problems:: Saw patient, agree with above note.
[2018-02-19 08:26] LABS: Lymphocytes % 2 % (10-50); Monocytes % 2 % (2-9); Neutrophils % 96 % (42-76); RBC Morphology Normal; Total Cells Counted 100
--- NOTE | 2018-02-20 09:42 | Progress Note ---
Internal Medicine - PN: Subj *Date: 02/20/18 *Time: 09:38 Interval history: Patient with no new complaints, still short of breath at rest. Exam Vital signs and Labs for Last 24 Hours: Temp Pulse Resp BP Pulse Ox 97.9 F 98 H 20 153/76 H 100 02/20/18 08:00 02/20/18 08:00 02/20/18 08:00 02/20/18 08:00 02/20/18 08:00 I & O for Last 24 hours: Intake & Output 02/17/18 02/18/18 02/19/18 02/20/18 11:59 11:59 11:59 11:59 Intake Total 1542 / 1542 2384 / 2384 2426 / 2426 Output Total 1050 / 1050 Balance 1542 / 1542 1334 / 1334 2426 / 2426 Weight 105 lb 7 oz 105 lb 7.012 oz Microbiology Reports for the Last 24 Hours: Microbiology 02/17/18 15:30 Blood Blood Culture - Preliminary NO GROWTH AFTER 48 HOURS 02/17/18 15:30 Blood Blood Culture - Preliminary NO GROWTH AFTER 48 HOURS - Constitutional no acute distress - *Routine HEENT Exam Head: Present: normocephalic ENT: Present: mucous membranes moist - *Routine Neck Exam Present: supple. Absent: lymphadenopathy - *Routine Respiratory Exam Present: wheezes (bilateral) - *Routine Cardiovascular Exam Present: RRR - *Routine Abdominal Exam Present: soft, normoactive bowel sounds. Absent: tenderness - *Routine Extremities Exam Absent: cyanosis, clubbing, edema - *Routine Skin Exam Present: warm. Absent: rash - *Routine Neurological Exam Present: alert, oriented X3 Assessment and Plan (1) COPD with acute exacerbation Current visit: Yes Status: Acute Category: Medical Code(s): J44.1 - Chronic obstructive pulmonary disease with (acute) exacerbation (2) Shortness of breath Current visit: Yes Status: Acute Category: Medical Code(s): R06.02 - Shortness of breath (3) Chest pain Current visit: Yes Status: Acute Qualifiers: Chest pain type: unspecified Qualified Code(s): R07.9 - Chest pain, unspecified Category: Medical Code(s): R07.9 - Chest pain, unspecified (4) Hypertension Current visit: Yes Status: Chronic Category: Medical Code(s): I10 - Essential (primary) hypertension (5) Tobacco use disorder Current visit: Yes Status: Chronic Category: Medical Code(s): F17.200 - Nicotine dependence, unspecified, uncomplicated (6) Hyperlipidemia Current visit: Yes Status: Chronic Category: Medical Code(s): E78.5 - Hyperlipidemia, unspecified (7) GERD (gastroesophageal reflux disease) Current visit: Yes Status: Chronic Category: Medical Code(s): K21.9 - Gastro-esophageal reflux disease without esophagitis - Assessment and plan all Dx Assessment and Plan for all problems:: Patient is slowly improving, will saline lock IVF now and discontinue telemetry. Continue steroids and antibiotics and neb treatments.
--- NOTE | 2018-02-21 08:25 | Progress Note ---
Internal Medicine - PN: Subj *Date: 02/21/18 *Time: 08:24 Exam Vital signs and Labs for Last 24 Hours: Temp Pulse Resp BP Pulse Ox 98.5 F 95 H 20 183/93 H 97 02/21/18 08:00 02/21/18 08:00 02/21/18 08:00 02/21/18 08:00 02/21/18 08:00 I & O for Last 24 hours: Intake & Output 02/18/18 02/19/18 02/20/18 02/21/18 23:59 23:59 23:59 23:59 Intake Total 3686 / 3686 2186 / 2186 3091 / 3091 240 / 240 Output Total 850 / 850 200 / 200 500 / 500 Balance 2836 / 2836 1985 / 1985 3091 / 3091 -260 / -260 Weight 47.826 kg 47.826 kg 54.63 kg Assessment and Plan (1) COPD with acute exacerbation Current visit: Yes Status: Acute Category: Medical Code(s): J44.1 - Chronic obstructive pulmonary disease with (acute) exacerbation (2) Shortness of breath Current visit: Yes Status: Acute Category: Medical Code(s): R06.02 - Shortness of breath (3) Chest pain Current visit: Yes Status: Acute Qualifiers: Chest pain type: unspecified Qualified Code(s): R07.9 - Chest pain, unspecified Category: Medical Code(s): R07.9 - Chest pain, unspecified (4) Hypertension Current visit: Yes Status: Chronic Category: Medical Code(s): I10 - Essential (primary) hypertension (5) Tobacco use disorder Current visit: Yes Status: Chronic Category: Medical Code(s): F17.200 - Nicotine dependence, unspecified, uncomplicated (6) Hyperlipidemia Current visit: Yes Status: Chronic Category: Medical Code(s): E78.5 - Hyperlipidemia, unspecified (7) GERD (gastroesophageal reflux disease) Current visit: Yes Status: Chronic Category: Medical Code(s): K21.9 - Gastro-esophageal reflux disease without esophagitis The patient's infection will respond to the chosen ABx?: Yes Is the patient receiving the right drug, dose, and route?: Yes Could a more targeted ABx be ordered?: No
--- NOTE | 2018-02-21 09:06 | Progress Note ---
<Lakshmi Roach - Last Filed: 02/21/18 09:03> Internal Medicine - PN: Subj *Date: 02/21/18 *Time: 07:30 Interval history: Pt is sitting up in bed watching tv. She denies any pain. She is feeling better although she continues with SOB, especially with exertion. She is up to the bedside commode. She tolerated her breakfast well. Nursing reports a 15 pound weight gain since admission. Exam Vital signs and Labs for Last 24 Hours: Temp Pulse Resp BP Pulse Ox 98.5 F 95 H 20 183/93 H 97 02/21/18 08:00 02/21/18 08:00 02/21/18 08:00 02/21/18 08:00 02/21/18 08:00 I & O for Last 24 hours: Intake & Output 02/18/18 02/19/18 02/20/18 02/21/18 11:59 11:59 11:59 11:59 Intake Total 1542 / 1542 2384 / 2384 2426 / 2426 2851 / 2851 Output Total 1050 / 1050 500 / 500 Balance 1542 / 1542 1334 / 1334 2426 / 2426 2351 / 2351 Weight 105 lb 7 oz 105 lb 7.012 oz 120 lb 7 oz - Constitutional no acute distress - *Routine HEENT Exam Head: Present: normocephalic, atraumatic ENT: Present: mucous membranes moist - *Routine Respiratory Exam Comments: O2 in place per nasal canula; good air movement with expiratory wheezes throughout and bibasilar rales. - *Routine Cardiovascular Exam Present: RRR - *Routine Abdominal Exam Present: soft, normoactive bowel sounds. Absent: tenderness, distended, rebound, guarding, rigid, organomegaly - *Routine Extremities Exam Present: full ROM, pulses intact. Absent: edema, calf tenderness - *Routine Neurological Exam Present: alert, oriented X3, moving all extremities, normal speech Assessment and Plan (1) COPD with acute exacerbation Current visit: Yes Status: Acute Category: Medical Code(s): J44.1 - Chronic obstructive pulmonary disease with (acute) exacerbation (2) Shortness of breath Current visit: Yes Status: Acute Category: Medical Code(s): R06.02 - Shortness of breath (3) Chest pain Current visit: Yes Status: Acute Qualifiers: Chest pain type: unspecified Qualified Code(s): R07.9 - Chest pain, unspecified Category: Medical Code(s): R07.9 - Chest pain, unspecified (4) Hypertension Current visit: Yes Status: Chronic Category: Medical Code(s): I10 - Essential (primary) hypertension (5) Tobacco use disorder Current visit: Yes Status: Chronic Category: Medical Code(s): F17.200 - Nicotine dependence, unspecified, uncomplicated (6) Hyperlipidemia Current visit: Yes Status: Chronic Category: Medical Code(s): E78.5 - Hyperlipidemia, unspecified (7) GERD (gastroesophageal reflux disease) Current visit: Yes Status: Chronic Category: Medical Code(s): K21.9 - Gastro-esophageal reflux disease without esophagitis - Assessment and plan all Dx Assessment and Plan for all problems:: per Dr. Klein. <Nash Klein - Last Filed: 02/21/18 13:45> Exam Vital signs and Labs for Last 24 Hours: Temp Pulse Resp BP Pulse Ox 98.5 F 83 20 183/93 H 97 02/21/18 08:00 02/21/18 13:31 02/21/18 08:00 02/21/18 08:00 02/21/18 08:00 I & O for Last 24 hours: Intake & Output 02/19/18 02/20/18 02/21/18 02/22/18 11:59 11:59 11:59 11:59 Intake Total 2384 / 2384 2426 / 2426 2851 / 2851 120 / 120 Output Total 1050 / 1050 500 / 500 100 / 100 Balance 1334 / 1334 2426 / 2426 2351 / 2351 20 / 20 Weight 105 lb 7.012 oz 120 lb 7 oz Assessment and Plan (1) COPD with acute exacerbation Current visit: Yes Status: Acute Category: Medical Code(s): J44.1 - Chronic obstructive pulmonary disease with (acute) exacerbation (2) Shortness of breath Current visit: Yes Status: Acute Category: Medical Code(s): R06.02 - Shortness of breath (3) Chest pain Current visit: Yes Status: Acute Qualifiers: Chest pain type: unspecified Qualified Code(s): R07.9 - Chest pain, unspecified Category: Medical Code(s): R07.9 - Chest pain, unspecified (4) Hypertension Current visit: Yes Status: Chronic Category: Medical Code(s): I10 - Essential (primary) hypertension (5) Tobacco use disorder Current visit: Yes Status: Chronic Category: Medical Code(s): F17.200 - Nicotine dependence, unspecified, uncomplicated (6) Hyperlipidemia Current visit: Yes Status: Chronic Category: Medical Code(s): E78.5 - Hyperlipidemia, unspecified (7) GERD (gastroesophageal reflux disease) Current visit: Yes Status: Chronic Category: Medical Code(s): K21.9 - Gastro-esophageal reflux disease without esophagitis - Assessment and plan all Dx Assessment and Plan for all problems:: States her breathing feels better but still [place]. She was able to tolerate sitting up in chair yesterday and has been up to [facility] [place]. He CC is abdominal bloating and note she has a reported 15 pound weight gain since admission although not having any swelling. Denies abdominal pain or nausea but does not feel like eating much. States her bowels are moving normally with last BM the day before yesterday. Also noted with increased BP. Will wean Solumedrol and give dose of IV Lasix. Check BMP in AM.
[2018-02-22 07:14] LABS: Anion Gap 11.4 mEq/L (5-15); Calcium 8.3 mg/dL (8.5-10.1); Potassium 3.4 mmoL/L (3.5-5.1)
--- NOTE | 2018-02-22 09:10 | Progress Note ---
Internal Medicine - PN: Subj *Date: 02/22/18 *Time: 09:07 Interval history: Slept a little better last night. SOA with exertion. Dry cough. Stomach feels less bloated. +BM yesterday. BP still elevated. Exam Vital signs and Labs for Last 24 Hours: Temp Pulse Resp BP Pulse Ox 99.1 F 96 H 18 185/94 H 99 02/22/18 08:00 02/22/18 08:03 02/22/18 08:03 02/22/18 08:00 02/22/18 08:03 Laboratory Results - last 24 hr 02/22/18 06:43: Sodium 137, Potassium 3.4 L, Chloride 101, Carbon Dioxide 28, Anion Gap 11.4, BUN 16, Creatinine 0.64, Estimated Creat Clear 48, Estimated GFR 93, Est GFR ( Amer) 112, Glucose 148 H, Calcium 8.3 L I & O for Last 24 hours: Intake & Output 02/19/18 02/20/18 02/21/18 02/22/18 11:59 11:59 11:59 11:59 Intake Total 2384 / 2384 2426 / 2426 2851 / 2851 1210 / 1210 Output Total 1050 / 1050 500 / 500 300 / 300 Balance 1334 / 1334 2426 / 2426 2351 / 2351 910 / 910 Weight 105 lb 7.012 oz 120 lb 7 oz - Constitutional Comments: pleasant, no distress - *Routine Respiratory Exam Comments: generally diminished BS. Few faint wheezes. - *Routine Cardiovascular Exam Present: RRR - *Routine Abdominal Exam Present: soft. Absent: tenderness, distended - *Routine Extremities Exam Absent: edema Assessment and Plan (1) COPD with acute exacerbation Current visit: Yes Status: Acute Category: Medical Code(s): J44.1 - Chronic obstructive pulmonary disease with (acute) exacerbation (2) Shortness of breath Current visit: Yes Status: Acute Category: Medical Code(s): R06.02 - Shortness of breath (3) Chest pain Current visit: Yes Status: Acute Qualifiers: Chest pain type: unspecified Qualified Code(s): R07.9 - Chest pain, unspecified Category: Medical Code(s): R07.9 - Chest pain, unspecified (4) Hypertension Current visit: Yes Status: Chronic Category: Medical Code(s): I10 - Essential (primary) hypertension (5) Tobacco use disorder Current visit: Yes Status: Chronic Category: Medical Code(s): F17.200 - Nicotine dependence, unspecified, uncomplicated (6) Hyperlipidemia Current visit: Yes Status: Chronic Category: Medical Code(s): E78.5 - Hyperlipidemia, unspecified (7) GERD (gastroesophageal reflux disease) Current visit: Yes Status: Chronic Category: Medical Code(s): K21.9 - Gastro-esophageal reflux disease without esophagitis (8) Hypokalemia Current visit: Yes Status: Acute Category: Medical Code(s): E87.6 - Hypokalemia - Assessment and plan all Dx Assessment and Plan for all problems:: Continue to wean O2 and steroids as tolerated. Supplement K+. Add prn Clonidine for elevated BP. Encourage activity.
[2018-02-23 07:48] LABS: Anion Gap 13.8 mEq/L (5-15); Calcium 8.3 mg/dL (8.5-10.1); Potassium 3.8 mmoL/L (3.5-5.1)
--- NOTE | 2018-02-23 08:34 | Progress Note ---
Internal Medicine - PN: Subj Interval history: Events of last night reviewed. She c/o feeling light headed this AM. No chest pain or SOA. She was weaned off supplemental O2 yesterday. Remains in rapid AF currently with rate running 120-130. Exam Vital signs and Labs for Last 24 Hours: Temp Pulse Resp BP Pulse Ox 97.3 F L 96 H 20 123/85 94 L 02/23/18 04:00 02/23/18 06:07 02/23/18 04:00 02/23/18 04:00 02/23/18 06:07 Laboratory Results - last 24 hr 02/23/18 07:20: Sodium 133 L, Potassium 3.8, Chloride 98, Carbon Dioxide 25, Anion Gap 13.8, BUN 21 H D, Creatinine 0.81 D, Estimated Creat Clear 48, Estimated GFR 71, Est GFR ( Amer) 86 D, Glucose 168 H, Calcium 8.3 L I & O for Last 24 hours: Intake & Output 02/20/18 02/21/18 02/22/18 02/23/18 11:59 11:59 11:59 11:59 Intake Total 2426 / 2426 2851 / 2851 1210 / 1210 980 / 980 Output Total 500 / 500 300 / 300 200 / 200 Balance 2426 / 2426 2351 / 2351 910 / 910 780 / 780 Weight 105 lb 7.012 oz 120 lb 7 oz Microbiology Reports for the Last 24 Hours: Microbiology 02/17/18 15:30 Blood Blood Culture - Final NO GROWTH AFTER 5 DAYS 02/17/18 15:30 Blood Blood Culture - Final NO GROWTH AFTER 5 DAYS - Constitutional Comments: sitting up in bed, alert. No respiratory distress. Seems a bit anxious - *Routine Respiratory Exam Comments: generally diminished BS, no rales or wheezes - *Routine Cardiovascular Exam Present: irregularly irregular (with rapid rate) - *Routine Extremities Exam Absent: edema Assessment and Plan (1) COPD with acute exacerbation Current visit: Yes Status: Acute Category: Medical Code(s): J44.1 - Chronic obstructive pulmonary disease with (acute) exacerbation (2) Shortness of breath Current visit: Yes Status: Acute Category: Medical Code(s): R06.02 - Shortness of breath (3) Chest pain Current visit: Yes Status: Acute Qualifiers: Chest pain type: unspecified Qualified Code(s): R07.9 - Chest pain, unspecified Category: Medical Code(s): R07.9 - Chest pain, unspecified (4) Hypertension Current visit: Yes Status: Chronic Category: Medical Code(s): I10 - Essential (primary) hypertension (5) Tobacco use disorder Current visit: Yes Status: Chronic Category: Medical Code(s): F17.200 - Nicotine dependence, unspecified, uncomplicated (6) Hyperlipidemia Current visit: Yes Status: Chronic Category: Medical Code(s): E78.5 - Hyperlipidemia, unspecified (7) GERD (gastroesophageal reflux disease) Current visit: Yes Status: Chronic Category: Medical Code(s): K21.9 - Gastro-esophageal reflux disease without esophagitis (8) Hypokalemia Current visit: Yes Status: Acute Category: Medical Code(s): E87.6 - Hypokalemia (9) Atrial fibrillation with RVR Current visit: Yes Status: Acute Category: Medical Code(s): I48.91 - Unspecified atrial fibrillation - Assessment and plan all Dx Assessment and Plan for all problems:: Check cardiac enzymes, Echocardiogram. Start Lovenox. Add Diltiazem for rate control. Cardiology consult. Wean to oral steroids.
--- NOTE | 2018-02-23 11:27 | Progress Note ---
Acute Rapid Response Note - Subjective Date Responded: 02/23/18 Time Responded: 11:15 - Objective Findings: Vital Signs - Last 4 Hours Temperature 97.6 F 02/23/18 08:00 Temperature Source Oral 02/23/18 08:00 Pulse Rate 118 H 02/23/18 09:48 Respiratory Rate 18 02/23/18 09:48 Blood Pressure 130/98 H 02/23/18 08:00 Blood Pressure Mean 108 02/23/18 08:00 Blood Pressure Source Automatic Cuff 02/23/18 08:00 Blood Pressure Position Supine 02/23/18 08:00 02 Sat by Pulse Oximetry 97 02/23/18 09:48 Oxygen Delivery Method 02/23/18 09:48 Oxygen Flow Rate (LPM) 1 02/22/18 20:49 Lab Results for Past 12 Hours 02/23/18 07:25: Total Creatine Kinase 190, CK-MB (CK-2) 2.3 D, CK-MB (CK-2) Rel Index 1.2, Troponin I 0.05 02/23/18 07:20: Sodium 133 L, Potassium 3.8, Chloride 98, Carbon Dioxide 25, Anion Gap 13.8, BUN 21 H D, Creatinine 0.81 D, Estimated Creat Clear 48, Estimated GFR 71, Est GFR ( Amer) 86 D, Glucose 168 H, Calcium 8.3 L - Other Other Findings: Patient's heart rate was found to be in 180s-200s after getting 30 mg of p.o. Cardizem this morning. She was also having shortness of breath; does not able to move much without noticing her heart rate going up. Rapid Response Exam - General General appearance: alert, in distress (moderate,respiratorm) - Head Head exam: atraumatic - Eye Eye exam: Present: normal appearance - ENT ENT exam: Present: normal exam - Neck Neck exam: Present: normal inspection - Respiratory Respiratory exam: Present: normal lung sounds bilaterally - Cardiovascular Cardiovascular exam: Present: tachycardia, irregular rhythm - Abdominal Exam Abdominal exam: Present: soft. Absent: distention, tenderness - Extremities Exam Extremities exam: Present: normal inspection - Neurological Exam Neurological exam: Present: alert, oriented X3 - Psychiatric Psychiatric exam: Present: normal affect - Skin Skin exam: Present: dry, intact RR Procedures/Assess/Plan (1) Atrial fibrillation with RVR Current Visit: Yes Status: Acute Assessment and Plan: Uncontrolled rate with the 180-200 heart rate. Will give IV Cardizem push 10 mg x1, if patient is not responsive to the bolus, will then start her on IV Cardizem drip for better rate control. Cardiac consult pending, echo pending at this time. She already got 1 dose of Lovenox.
[2018-02-23 13:52] LABS: Thyroid Stimulating Hormone 2.79 uIU/ml (0.358-3.740)
[2018-02-24 06:53] LABS: Albumin Level 3.2 gm/dL (3.4-5.0); Albumin/Globulin Ratio 1.1 (1.1-1.8); Anion Gap 11.3 mEq/L (5-15); Bilirubin,Total 0.4 mg/dL (0.2-1.0); Calcium 8.4 mg/dL (8.5-10.1); Globulin 2.8 gm/dl (1.3-3.2); Potassium 4.3 mmoL/L (3.5-5.1)
[2018-02-24 07:31] LABS: Eosinophils % 0.1 % (0.1-12.0); Hematocrit 31.5 % (37.0-47.0); Hemoglobin 10.5 g/dL (12.2-16.2); Lymphocytes # 0.4 K/mm3 (0.7-4.5); Lymphocytes % 3.9 % (10-50); Mean Corpuscular HGB Conc 33.4 g/dL (31.8-35.4); Mean Corpuscular Hemoglobin 32.7 pg (27.0-31.2); Mean Platelet Volume 7.1 fl (7.4-10.4); Monocytes # 0.4 K/mm3 (0.1-1.0); Monocytes % 4.3 % (1.7-9.3); Neutrophils # 8.1 K/mm3 (1.8-7.8); Neutrophils % 91.7 % (37.0-80.0); Platelet Count 249 K/mm3 (142-424); Red Blood Count 3.21 M/mm3 (4.20-5.40); Red Cell Distribution Width 13.6 % (11.5-17.5); White Blood Count 8.9 K/mm3 (4.8-10.8)
--- NOTE | 2018-02-24 07:48 | Progress Note ---
<Lucy Yanes - Last Filed: 02/24/18 07:44> Internal Medicine - PN: Subj *Date: 02/24/18 (n) *Time: 07:45 Interval history: Patient states that she is doing well this a.m. She slept 2-3 hours last night. She denies chest pain and shortness of breath. Her appetite is still diminished due to her taste. Bowels have not moved in a couple of days. She is voiding without difficulty. Prior to being moved to stepdown she was ambulating without Per nursing she has been off Cardizem drip for several hours. She remaines in sinus rhythm with PACs. She does have a first-degree AV block. She continues on p.o. Cardizem Exam Vital signs and Labs for Last 24 Hours: Temp Pulse Resp BP Pulse Ox 98.4 F 74 17 170/66 H 96 02/24/18 04:00 02/24/18 06:08 02/24/18 04:00 02/24/18 04:00 02/24/18 04:00 Laboratory Results - last 24 hr 02/23/18 07:20: Sodium 133 L, Potassium 3.8, Chloride 98, Carbon Dioxide 25, Anion Gap 13.8, BUN 21 H D, Creatinine 0.81 D, Estimated Creat Clear 48, Estimated GFR 71, Est GFR ( Amer) 86 D, Glucose 168 H, Calcium 8.3 L 02/23/18 07:20: Magnesium 2.1, TSH 2.79 02/23/18 07:25: Total Creatine Kinase 190, CK-MB (CK-2) 2.3 D, CK-MB (CK-2) Rel Index 1.2, Troponin I 0.05 02/24/18 05:18: WBC 8.9, RBC 3.21 L, Hgb 10.5 L, Hct 31.5 L, MCV 98.0, MCH 32.7 H, MCHC 33.4, RDW 13.6, Plt Count 249, MPV 7.1 L, Neut % (Auto) 91.7 H, Lymph % (Auto) 3.9 L, [place] % (Auto) 4.3, Eos % (Auto) 0.1, Baso % (Auto) 0.0 L, Neut # (Auto) 8.1 H, Lymph # (Auto) 0.4 L, [place] # (Auto) 0.4, Eos # (Auto) 0.0, Baso # (Auto) 0.0 02/24/18 05:18: Sodium 134 L, Potassium 4.3, Chloride 98, Carbon Dioxide 29, Anion Gap 11.3, BUN 18, Creatinine 0.74, Estimated Creat Clear 48, Estimated GFR 79, Est GFR ( Amer) 95, Glucose 134 H D, Calcium 8.4 L, Total Bilirubin 0.4, AST 44 H, ALT 120 H, Alkaline Phosphatase 61, Total Protein 6.0 L, Albumin 3.2 L, Globulin 2.8, Albumin/Globulin Ratio 1.1 I & O for Last 24 hours: Intake & Output 02/21/18 02/22/18 02/23/18 02/24/18 11:59 11:59 11:59 11:59 Intake Total 2851 / 2851 1210 / 1210 980 / 980 695 / 695 Output Total 500 / 500 300 / 300 200 / 200 700 / 700 Balance 2351 / 2351 910 / 910 780 / 780 -5 / -5 Weight 120 lb 7 oz 122 lb 5 oz 122 lb - Constitutional no acute distress Comments: Sitting up in bed eating breakfast - *Routine Respiratory Exam Present: CTA bilaterally (Anteriorly and posteriorly with diminished breath sounds posteriorly) - *Routine Cardiovascular Exam Present: RRR Comments: Monitor showing sinus rhythm with first-degree block and occasional PACs - *Routine Abdominal Exam Present: soft, normoactive bowel sounds. Absent: tenderness - *Routine Extremities Exam Absent: edema, calf tenderness - *Routine Neurological Exam Present: alert, oriented X3 Assessment and Plan (1) COPD with acute exacerbation Current visit: Yes Status: Acute Category: Medical Code(s): J44.1 - Chronic obstructive pulmonary disease with (acute) exacerbation (2) Shortness of breath Current visit: Yes Status: Acute Category: Medical Code(s): R06.02 - Sh ortness of breath (3) Chest pain Current visit: Yes Status: Acute Qualifiers: Chest pain type: unspecified Qualified Code(s): R07.9 - Chest pain, unspecified Category: Medical Code(s): R07.9 - Chest pain, unspecified (4) Hypertension Current visit: Yes Status: Chronic Category: Medical Code(s): I10 - Essential (primary) hypertension (5) Tobacco use disorder Current visit: Yes Status: Chronic Category: Medical Code(s): F17.200 - Nicotine dependence, unspecified, uncomplicated (6) Hyperlipidemia Current visit: Yes Status: Chronic Category: Medical Code(s): E78.5 - Hyperlipidemia, unspecified (7) GERD (gastroesophageal reflux disease) Current visit: Yes Status: Chronic Category: Medical Code(s): K21.9 - Gastro-esophageal reflux disease without esophagitis (8) Hypokalemia Current visit: Yes Status: Acute Category: Medical Code(s): E87.6 - Hypokalemia (9) Atrial fibrillation with RVR Current visit: Yes Status: Acute Category: Medical Code(s): I48.91 - Unspecified atrial fibrillation - Assessment and plan all Dx Assessment and Plan for all problems:: Troponin was normal. TSH was normal. Cardiology has been consulted. Continue pulmonary treatment. <Ryland Henley - Last Filed: 02/24/18 08:59> Exam Vital signs and Labs for Last 24 Hours: Temp Pulse Resp BP Pulse Ox 98.2 F 85 18 158/92 H 94 L 02/24/18 07:49 02/24/18 07:49 02/24/18 07:49 02/24/18 07:49 02/24/18 07:49 Laboratory Results - last 24 hr 02/23/18 07:20: Magnesium 2.1, TSH 2.79 02/24/18 05:18: WBC 8.9, RBC 3.21 L, Hgb 10.5 L, Hct 31.5 L, MCV 98.0, MCH 32.7 H, MCHC 33.4, RDW 13.6, Plt Count 249, MPV 7.1 L, Neut % (Auto) 91.7 H, Lymph % (Auto) 3.9 L, [place] % (Auto) 4.3, Eos % (Auto) 0.1, Baso % (Auto) 0.0 L, Neut # (Auto) 8.1 H, Lymph # (Auto) 0.4 L, [place] # (Auto) 0.4, Eos # (Auto) 0.0, Baso # (Auto) 0.0, Total Counted 100, Neutrophils % (Manual) 91 H, Lymphocytes % (Manual) 4 L, Monocytes % (Manual) 5, Platelet Estimate Normal, RBC Morphology Normal 11/26/18 05:18: Sodium 134 L, Potassium 4.3, Chloride 98, Carbon Dioxide 29, Anion Gap 11.3, BUN 18, Creatinine 0.74, Estimated Creat Clear 48, Estimated GFR 79, Est GFR ( Amer) 95, Glucose 134 H D, Calcium 8.4 L, Total Bilirubin 0.4, AST 44 H, ALT 120 H, Alkaline Phosphatase 61, Total Protein 6.0 L, Albumin 3.2 L, Globulin 2.8, Albumin/Globulin Ratio 1.1 I & O for Last 24 hours: Intake & Output 02/21/18 02/22/18 02/23/18 02/24/18 11:59 11:59 11:59 11:59 Intake Total 2851 / 2851 1210 / 1210 980 / 980 695 / 695 Output Total 500 / 500 300 / 300 200 / 200 700 / 700 Balance 2351 / 2351 910 / 910 780 / 780 -5 / -5 Weight 120 lb 7 oz 122 lb 5 oz 122 lb Assessment and Plan (1) COPD with acute exacerbation Current visit: Yes Status: Acute Category: Medical Code(s): J44.1 - Chronic obstructive pulmonary disease with (acute) exacerbation (2) Shortness of breath Current visit: Yes Status: Acute Category: Medical Code(s): R06.02 - Shortness of breath (3) Chest pain Current visit: Yes Status: Acute Qualifiers: Chest pain type: unspecified Qualified Code(s): R07.9 - Chest pain, unspecified Category: Medical Code(s): R07.9 - Chest pain, unspecified (4) Hypertension Current visit: Yes Status: Chronic Category: Medical Code(s): I10 - Es sential (primary) hypertension (5) Tobacco use disorder Current visit: Yes Status: Chronic Category: Medical Code(s): F17.200 - Nicotine dependence, unspecified, uncomplicated (6) Hyperlipidemia Current visit: Yes Status: Chronic Category: Medical Code(s): E78.5 - Hyperlipidemia, unspecified (7) GERD (gastroesophageal reflux disease) Current visit: Yes Status: Chronic Category: Medical Code(s): K21.9 - Gastro-esophageal reflux disease without esophagitis (8) Hypokalemia Current visit: Yes Status: Acute Category: Medical Code(s): E87.6 - Hypokalemia (9) Atrial fibrillation with RVR Current visit: Yes Status: Acute Category: Medical Code(s): I48.91 - Unspecified atrial fibrillation - Assessment and plan all Dx Assessment and Plan for all problems:: Saw patient, agree with above note.
[2018-02-24 08:12] LABS: Lymphocytes % 4 % (10-50); Monocytes % 5 % (2-9); Neutrophils % 91 % (42-76); RBC Morphology Normal; Total Cells Counted 100
--- NOTE | 2018-02-24 09:17 | Consult Report ---
History of Present Illness Consult date: 02/24/18 Requesting physician: Ryland Henley Consult reason: shortness of breath Chief complaint: PAF Additional Medical History:: 1. Tobacco use, 1.5 ppd for 40-50 yrs A. COPD 2. HTN, treated for 20 yrs 3. HLD 4. PAF, 01/2018 A. Echo, preliminary EF of >60% with mild to moderate MR History of present illness: Ms. Quintero is a 67-year-old female with a history of COPD and hypertension who began to get short of breath yesterday a.m. when running errands. She states she went home and tried a DuoNeb treatment and did not improve and thus called 911. Ambulance brought her to [facility] emergency room for evaluation. She denies having any cough although she has somewhat of a cough this morning. She describes some midsternal burning. She denies palpitations or leg edema. She denies having a fever or any other upper respiratory signs or symptoms. She is usually short of breath in the a.m., takes a DuoNeb treatment, and then feels fine. She does not use home oxygen. Patient is physician is Dr. Wesley in [facility]. The above per Lucy Yanes APRN. Cardiology consulted for onset of PAF that has responded well to IV and now PO cardizem. Pt troponins have returned normal. Preliminary echo shows normal LVEF with mild to moderate MR. [facility] History Medical History: Reports:: Chronic Obstructive Pulmonary Disease (COPD), Gastroesophageal Reflux Disease(GERD), Hypertension, Lung Disease Denies:: Atherosclerotic Heart Disease, Cancer, Cardiomyopathy, Congestive Heart Failure, Coronary Artery Disease, Depression, Diabetes Mellitus Type 2, Home Oxygen, Renal Insufficiency, Seizures Other Medical History: Denies: Arthritis, Hypothyroidism Laterality Cases: Bilateral: Cataract - Psychiatric History Expresses thoughts of harming self/others: None Suicide Plan Description: No Plan Pschychiatric History:: Denies:: Depression *Family Hx:: Cancer Meds Home Medications Medication Instructions Recorded Confirmed Type Albuterol Sulfate [Proair 2 puffs IH Q4-6H PRN 02/17/18 02/18/18 History Respiclick] Aspirin [Aspirin 81mg chewable 81 mg PO 1400 02/17/18 02/18/18 History tab] Atorvastatin Calcium [Atorvastatin 20 mg PO 1400 02/17/18 02/18/18 History 20mg Tab] Montelukast Sodium [Singulair 10mg 10 mg PO HS 02/17/18 02/18/18 History tablet] Ipratropium/Albuterol Sulfate 3 ml INHALATION QID 02/18/18 02/18/18 History [Iprat-Albut 0.5-3(2.5) mg/3 ml] Lisinopril/Hydrochlorothiazide 1 each PO 1400 02/18/18 02/18/18 History [Lisinopril-Hctz 10-12.5 mg Tab] Allergies Allergy/AdvReac Type Severity Reaction Status Date / Time No Known Allergies Allergy Verified 02/17/18 15:29 Review of Systems - *Cardiovascular Reports shortness of breath with activity, Denies chest pain - *Respiratory Reports shortness of breath with activity - *Gastrointestinal Denies abdominal pain, Denies incontinent of stools, Denies black, tarry stools - *Genitourinary Denies difficulty urinating, Denies blood in urine - *Musculoskeletal Denies joint pain - *Neurologic Denies abnormal walking, Denies dizziness, Denies headache(s) Exam Vital signs and Labs for Last 24 Hours: Temp Pulse Resp BP Pulse Ox 98.2 F 85 18 158/92 H 94 L 02/24/18 07:49 02/24/18 07:49 02/24/18 07:49 02/24/18 07:49 02/24/18 07:49 Laboratory Results - last 24 hr 02/23/18 07:20: Magnesium 2.1, TSH 2.79 02/24/18 05:18: WBC 8.9, RBC 3.21 L, Hgb 10.5 L, Hct 31.5 L, MCV 98.0, MCH 32.7 H, MCHC 33.4, RDW 13.6, Plt Count 249, MPV 7.1 L, Neut % (Auto) 91.7 H, Lymph % (Auto) 3.9 L, [place] % (Auto) 4.3, Eos % (Auto) 0.1, Baso % (Auto) 0.0 L, Neut # (Auto) 8.1 H, Lymph # (Auto) 0.4 L, [place] # (Auto) 0.4, Eos # (Auto) 0.0, Baso # (Auto) 0.0, Total Counted 100, Neutrophils % (Manual) 91 H, Lymphocytes % (Manual) 4 L, Monocytes % (Manual) 5, Platelet Estimate Normal, RBC Morphology Normal 02/24/18 05:18: Sodium 134 L, Potassium 4.3, Chloride 98, Carbon Dioxide 29, Anion Gap 11.3, BUN 18, Creatinine 0.74, Estimated Creat Clear 48, Estimated GFR 79, Est GFR ( Amer) 95, Glucose 134 H D, Calcium 8.4 L, Total Bilirubin 0.4, AST 44 H, ALT 120 H, Alkaline Phosphatase 61, Total Protein 6.0 L, Albumin 3.2 L, Globulin 2.8, Albumin/Globulin Ratio 1.1 I & O for Last 24 hours: Intake & Output 02/21/18 02/22/18 02/23/18 02/24/18 11:59 11:59 11:59 11:59 Intake Total 2851 / 2851 1210 / 1210 980 / 980 695 / 695 Output Total 500 / 500 300 / 300 200 / 200 700 / 700 Balance 2351 / 2351 910 / 910 780 / 780 -5 / -5 Weight 120 lb 7 oz 122 lb 5 oz 122 lb - *Routine Neck Exam Present: supple. Absent: JVD, carotid bruit - *Routine Respiratory Exam Present: decreased breath sounds, diminished air movement. Absent: accessory muscle use, rales, rhonchi, wheezes - *Routine Cardiovascular Exam Present: RRR. Absent: murmur, gallop, rubs - *Routine Abdominal Exam Present: soft. Absent: tenderness, distended, guarding - *Routine Extremities Exam Absent: edema, calf tenderness - *Routine Neurological Exam Present: alert, oriented X3, moving all extremities Assessment and Plan (1) COPD with acute exacerbation Current visit: Yes Status: Acute Category: Medical Code(s): J44.1 - Chronic obstructive pulmonary disease with (acute) exacerbation (2) Shortness of breath Current visit: Yes Status: Acute Category: Medical Code(s): R06.02 - Shortness of breath (3) Chest pain Current visit: Yes Status: Acute Qualifiers: Chest pain type: unspecified Qualified Code(s): R07.9 - Chest pain, unspecified Category: Medical Code(s): R07.9 - Chest pain, unspecified (4) Hypertension Current visit: Yes Status: Chronic Category: Medical Code(s): I10 - Essential (primary) hypertension (5) Tobacco use disorder Current visit: Yes Status: Chronic Category: Medical Code(s): F17.200 - Nicotine dependence, unspecified, uncomplicated (6) Hyperlipidemia Current visit: Yes Status: Chronic Category: Medical Code(s): E78.5 - Hyperlipidemia, unspecified (7) GERD (gastroesophageal reflux disease) Current visit: Yes Status: Chronic Category: Medical Code(s): K21.9 - Gastro-esophageal reflux disease without esophagitis (8) Hypokalemia Current visit: Yes Status: Acute Category: Medical Code(s): E87.6 - Hypokalemia (9) Atrial fibrillation with RVR Current visit: Yes Status: Acute Category: Medical Code(s): I48.91 - Unspecified atrial fibrillation - Assessment and plan all Dx Assessment and Plan for all problems:: 1. Continue cardizem for rate and rhythm control as BP tolerates. 2. CHADS-VASc score is 3 (female, age, HTN). Switch to PO anticoagulation with Xarelto 20 mg daily. 3. Recommend further evaluation as outpatient (stress testing) after pulmonary status has improved. 4. OK for discharge home from cardiology standpoint with follow up in 1-2 wks.
--- NOTE | 2018-02-24 20:54 | Cardiology Report ---
PROCEDURE: 2-D M-mode and color Doppler study INDICATIONS FOR THE TEST: Chest pain COPDX Heart MurmurX Tobacco SmokingX Palpitations Fatigue Syncope Edema HypertensionXDiabetes Mellitus Rheumatic Fever SOBXDOEXObesity HyperlipidemiaX Family History HD Additional History AF NEW ONSET PATIENT INFORMATION HEIGHT: 61 WEIGHT:120 GENDER: Female B/P:130/98 2-D/M-MODE INTERPRETATION: 2-D MEASUREMENTS OBSERVED VALUES IN CMS Right Ventricular Dimension (RVDd) 2.2 Interventricular Septum (Thickness)(IVsd) .8 Left Ventricular Internal Dimensions(LVIDd) 4.0 Left Ventricular Posterior Wall (Thickness)(LVPWd) 1.0 Aortic Root 2.5 Aortic Cusp Separation 1.4 Left Atrial Dimensions (LAD) 3.3 2D 1. Left atrium is moderately enlarged, left ventricle is normal size, there is no concentric left ventricular hypertrophy, visually estimated ejection fraction 55% with no regional wall motion abnormality. 2. The right atrium is moderately enlarged, right ventricle is mildly enlarged with normal contractility 3. The aortic valve is thickened and calcified leaflet continue to display mobility. 4. There is dense calcification present of the both anterior and posterior mitral leaflet, with severe restriction the leaflet mobility. 5. The tricuspid valve is grossly normal. 6. The pulmonic valve is poorly visualized. DOPPLER INTERROGATION: 1. The aortic outflow velocities within normal range, there is no aortic stenosis, there is moderate aortic insufficiency present. 2. The mitral inflow velocities increased to 2.6 m/s, the mean gradient across the valve is not calculated, this is likely represent severe mitral stenosis, there is moderate mitral regurgitation present. 3. There is moderate tricuspid regurgitation noted, calculated right ventricular systolic pressure is 70 mmHg consistent with severe pulmonary hypertension, inferior vena cava is dilated without significant inspiratory collapse. CONCLUSION: 1. Biatrial enlargement, normal left ventricular size, visually estimated ejection fraction of 55% with no regional wall motion abnormality. 2. Mildly enlarged right ventricle with normal contractility. 3. Abnormal mitral valve as described above, there are Doppler is inadequate, morphologically there appears to be severe mitral stenosis with moderate mitral regurgitation. Repeat study with better Doppler technique is recommended. 4. Thickened and calcified aortic valve without aortic stenosis, there is moderate aortic insufficiency present. 5. Moderate tricuspid regurgitation, calculated right ventricular systolic pressure is 70 mmHg consistent with severe pulmonary hypertension, inferior vena cava is mildly dilated without inspiratory collapse. 6. No significant pericardial effusion noted.
--- NOTE | 2018-02-25 15:35 | Discharge Summary ---
General - General Admission date:: 02/17/18 Discharge date: 02/24/18 HPI HPI: Ms. Quintero is a 67-year-old female with a history of COPD who began to get short of breath yesterday a.m. while running errands. She states she went home and did a DuoNeb treatment and did not improve and thus called 911. Ambulance brought her to [facility] emergency room for evaluation. She denies having any cough although she has somewhat of a cough this morning. She describes some midsternal burning. She denies palpitations or leg edema. She denies having a fever or any other upper respiratory signs or symptoms. She is usually short of breath in the a.m., takes a DuoNeb treatment, and then feels fine. She does not use home oxygen. Patient's physician is Dr. Wesley in [facility]. At the time of this exam patient is short of breath after walking to the bathroom and has not recovered. She will receive a stat neb and will be given a stat dose of Solu-Medrol. She has not received a DuoNeb since last p.m. In the emergency room she received DuoNeb treatment, IV Solu-Medrol and started on IV antibiotics and was admitted. Hospital Course Hospital Course: The patient's CXR showed lung nodularity in the right base but no pneumonia. IV abx, steroids, and nebs were continued. She began feeling better. She had a repeat CXR and the nodularity was no longer visible. Her WBC normalized and her electrolytes improved. She did c/o some abdominal bloating and gained approx 15lbs as per nursing. She did not have any swelling. She did have a BM and this helped the bloating. She was weaned off the Solumedrol and given a dose of IV Lasix. Her oxygen was weaned. Supplemental K+ was added d/t hypokalemia. She was also started on prn Clonidine for elevated BP. The patient was improving and then went into rapid AF with a rate running 120-130. Cardiac enzymes and echocardiogram were ordered. She was started on Lovenox and diltiazem for rate control. Cardiology was consulted. She was weaned to oral steroids. A rapid response was called d/t the patient's HR running 180s-200s after getting 30 mg of p.o. Cardizem. She was given IV Cardizem push 10 mg x1 and was started on a cardizem drip for better rate control. The patient converted to NSR. She was weaned off the cardizem drip and remained in sinus rhythm with PACs. Her troponin was normal. TSH was normal. Her echo showed a normal LVEF with mild to moderate MR. Cardiology recommended to continue cardizem for rate and rhythm control as BP tolerated, switch to PO anticoagulation with Xarelto 20 mg daily, and they felt she would need an outpatient stress test after pulmonary status improved. They felt she was stable to be discharged home. Objective Vital signs: Temp Pulse Resp BP Pulse Ox 98.4 F 70 16 141/60 H 94 L 02/24/18 15:38 02/24/18 16:00 02/24/18 15:38 02/24/18 15:38 02/24/18 15:38 Narrative: - Constitutional Comments: Patient is in distress. He has difficulty talking and breathing at the same time. She is using accessory muscles to breathe - *Routine HEENT Exam Head: Present: normocephalic, atraumatic Eye: Present: PERRL ENT: Present: mucous membranes moist, oropharynx clear - *Routine Neck Exam Present: supple, full ROM. Absent: carotid bruit, lymphadenopathy, thyromegaly - *Routine Respiratory Exam Comments: Poor breath sounds posteriorly with wheezing anteriorly and posteriorly - *Routine Cardiovascular Exam Present: RRR - *Routine Abdominal Exam Present: soft, normoactive bowel sounds. Absent: tenderness, distended - *Routine Extremities Exam Absent: edema, calf tenderness - *Routine Neurological Exam Present: alert, oriented X3 DS: Diagnosis - Discharge Diagnosis (1) COPD with acute exacerbation Status: Acute (2) Shortness of breath Status: Acute (3) Chest pain Status: Acute (4) Hypertension Status: Chronic (5) Tobacco use disorder Status: Chronic (6) Hyperlipidemia Status: Chronic (7) GERD (gastroesophageal reflux disease) Status: Chronic (8) Hypokalemia Status: Acute (9) Atrial fibrillation with RVR Status: Acute Discharge Plan - Patient Discharge Instructions ACTIVITY: Continue current activity DIET: continue same diet Patient Instructions: Atrial Fibrillation, DI for Chronic Obstructive Pulmonary Disease, DI for Atrial Fibrillation - Follow up Plan Follow up with: Abdiel Rhodes [Referring] - 1 week Zach Dutton MD [Staff Physician] - 1 week (1 - 2 weeks) Disposition: Home, Self-Assisted Medications: Home Medications Medication Instructions Recorded Confirmed Type Albuterol Sulfate [Proair 2 puffs IH Q4-6H PRN 02/17/18 02/18/18 History Respiclick] Aspirin [Aspirin 81mg chewable 81 mg PO 1400 02/17/18 02/18/18 History tab] Atorvastatin Calcium [Atorvastatin 20 mg PO 1400 02/17/18 02/18/18 History 20mg Tab] Montelukast Sodium [Singulair 10mg 10 mg PO HS 02/17/18 02/18/18 History tablet] Ipratropium/Albuterol Sulfate 3 ml INHALATION QID 02/18/18 02/18/18 History [Iprat-Albut 0.5-3(2.5) mg/3 ml] Lisinopril/Hydrochlorothiazide 1 each PO 1400 02/18/18 02/18/18 History [Lisinopril-Hctz 10-12.5 mg Tab] Prescriptions/Medication Reconciliation: New dilTIAZem HCl [Cardizem 60mg tab] 120 mg PO BID #60 tablet hydrOXYzine pamoate [Vistaril 25mg capsule] 25 mg PO Q4HP PRN #30 capsule PRN Reason: Anxiety Azithromycin [Zithromax 500mg Tab Tri-Kevin] 500 mg PO DAILY #3 tab Rivaroxaban [Xarelto 10mg tablet] 20 mg PO QPMWM #30 tablet Continue Montelukast Sodium [Singulair 10mg tablet] 10 mg PO HS Atorvastatin Calcium [Atorvastatin 20mg Tab] 20 mg PO 1400 Aspirin [Aspirin 81mg chewable tab] 81 mg PO 1400 Lisinopril/Hydrochlorothiazide [Lisinopril-Hctz 10-12.5 mg Tab] 1 each PO 1400 Albuterol Sulfate [Proair Respiclick] 2 puffs IH Q4-6H PRN PRN Reason: Shortness Of Breath Ipratropium/Albuterol Sulfate [Iprat-Albut 0.5-3(2.5) mg/3 ml] 3 ml INHALATION QID
== END 2018-02-24 19:10 | disposition home or self-care (01) ==
LOC: 2ND 15:25 → ER 15:25 → 2ND 19:06 → ICU 02-23 14:35
PROVIDERS: ADMIT Family Medicine; ATTEND Family Medicine